=== PATIENT | female | born 1995 | race Caucasian/White ===

== ENCOUNTER 2017-09-18 21:47 | Emergency (ER) | payer MEDICAID ==
[2016-01-01 05:03] VITALS: BMI 31.7
[~2017-09-18 21:47] MED LIST: DEPO-PROVER150 MG/ML IM; HYDROCODONE-APA1 TAB PO; MOTRIN600 MG PO; PRENAVITE1 TAB PO
[2017-09-18 22:32] LABS: APPEARANCE CLEAR (CLEAR); BILIRUBIN NEGATIVE (NEGATIVE); COLOR STRAW (YELLOW); GLUCOSE NEGATIVE (NEGATIVE); KETONE NEGATIVE (NEGATIVE); NITRITE NEGATIVE (NEGATIVE); PROTEIN NEGATIVE (NEGATIVE); SPECIFIC GRAVITY 1.005 (1.005-1.020); UROBILINOGEN NORMAL (NORMAL)
[2017-09-18 22:33] LABS: WHITE CELLS - URINE 0-5 /hpf (0-5)
[2017-09-18 22:34] LABS: BACTERIA MODERATE /hpf (NONE SEEN); RED CELLS - URINE 0-5 /hpf (0-5)
[2017-09-18 23:33] LABS: BASOPHILS 0.2 % (0-2); EOSINOPHILS 0.9 % (0-7); IMMATURE GRANULOCYTES 0.1 % (0-5); LYMPHOCYTES 43.7 % (15-50); MCH 28.7 pg (26.0-34.0); MCHC 34.2 g/dL (31.0-37.0); MCV 83.9 fL (80.0-100.0); MEAN PLATELET VOLUME 9.2 fL (7.4-10.4); MONOCYTES 7.7 % (2-11); NEUTROPHILS 47.4 % (40-80); PLATELET COUNT 177 10x3/uL (130-400); RBC 4.53 10x6/uL (4.00-5.40); RDW 13.6 % (11.5-14.5); WBC 8.6 10x3/uL (4.8-10.8)
[2017-09-19 00:06] LABS: ALBUMIN 4.2 g/dL (3.4-5.0); BILIRUBIN - TOTAL 0.51 mg/dL (0.2-1.3); CALCIUM 9.6 mg/dL (8.5-10.1); CARBON DIOXIDE 23.4 mmol/L (21.0-32.0); CREATININE - SERUM 1.1 mg/dL (0.6-1.3); POTASSIUM - SERUM 3.4 mmol/L (3.5-5.1)
== END 2017-09-19 01:35 | disposition home or self-care (01) ==
LOC: D.ER 21:47
PROVIDERS: Family Medicine
DX: S39.012A Strain of muscle, fascia and tendon of lower back, initial encounter (principal); X58.XXXA Exposure to other specified factors, initial encounter; Y93.89 Activity, other specified; Y92.89 Other specified places as the place of occurrence of the external cause

== ENCOUNTER 2019-11-15 05:43 | Day surgery (SDC) | payer BC, MEDICAID ==
[~2019-11-15] VITALS: Ht 157.5 cm; Wt 65.8 kg
[~2019-11-15 05:43] MED LIST changes: +ADIPEX-P37.5 MG PO; +TOPAMAX50 MG PO
[2019-11-15 06:21] LABS: HEMATOCRIT 41.5 % (36.0-48.0); HEMOGLOBIN 13.9 g/dL (12-16); MCH 29.4 pg (26.0-34.0); MCHC 33.5 g/dL (31.0-37.0); MCV 87.7 fL (80.0-100.0); MEAN PLATELET VOLUME 8.8 fL (7.4-10.4); RBC 4.73 10x6/uL (4.00-5.40); RDW 13.1 % (11.5-14.5)
[2019-11-15 06:32] LABS: HCG SERUM NEGATIVE (NEGATIVE)
[2019-11-15 06:42] VITALS: BP 115/69; Ht 157.5 cm; Wt 65.8 kg
[2019-11-15] MEDS ORDERED: HYDROCODON-ACET15 ML (09:52)
--- NOTE | 2019-11-15 10:30 | NUR ---
PATIENT AMBULATES TO BATHROOM AND VOIDS LARGE AMOUNT IN TOILET, LEFT ANTECUBITAL PIV DC'D WITH TIP INTACT. DISCHARGE INSTRUCTIONS REVIEWED WITH PATIENT AND SPOUSE. PATIENT DRESSING IN PERSONAL CLOTHING. PATIENT STATES DR HERNANDEZ HAS COME AND SPOKEN WITH HER
--- NOTE | 2019-11-18 12:41 | HP ---
PATIENT: LAURE MARC MEDICAL RECORD: [id number] ACCOUNT: [id number] LOCATION:[facility] : 93 ADMISSION DATE: 11/15/19 PCP: FERDINAND TRONCOSO MD HISTORY AND PHYSICAL EXAMINATION PREOPERATIVE HISTORY AND PHYSICAL HISTORY OF PRESENT ILLNESS: Laure is 24. She has been having recurrent strep pharyngitis and tonsilliths. She has been admitted for tonsillectomy and adenoidectomy. PAST MEDICAL HISTORY: Otherwise negative. PAST SURGICAL HISTORY: Bilateral foot surgery, 2012. MEDICATIONS: Phentermine. ALLERGIES: PENICILLIN. PHYSICAL EXAMINATION: GENERAL: She is healthy-appearing, developmentally normal. FACE: Normal, symmetric, no lesions. EYES: Sclerae and conjunctivae are normal. EARS: Canals and TMs normal. NOSE: No mass, polyps or drainage. ORAL CAVITY AND OROPHARYNX: Large 3+ tonsils with pockets and copious tonsilliths. NECK: No masses, no adenopathy. CHEST: Clear. CARDIOVASCULAR: Regular rate and rhythm, no murmur. EXTREMITIES: Normal. IMPRESSION: Chronic caseous tonsillitis and recurrent pharyngitis. PLAN: Tonsillectomy and adenoidectomy. TRANSINT:[id number] Voice Confirmation ID: [id number] DOCUMENT ID: [id number] LUISANA HERNANDEZ MD at 1241 CC: [id number] DICTATION DATE: 11/04/19 0947 FUND DIRECTOR: 11/04/19 1107 [facility] 11/15/19 [place] [id number]
--- NOTE | 2019-11-18 12:41 | OP ---
PATIENT NAME: HALLE MARC MEDICAL RECORD: [id number] :93 [facility] DATE: SURGEON: LUISANA UGALDE MD DATE OF OPERATION: 11/15/2019 PREOPERATIVE DIAGNOSIS: Chronic pharyngitis. POSTOPERATIVE DIAGNOSIS: Chronic pharyngitis. PROCEDURE: Tonsillectomy and adenoidectomy. SURGEON: Luisana Ugalde MD ANESTHESIA: General orotracheal. BLOOD LOSS: Less than 5 cc. SPECIMENS: Right and left tonsil. COMPLICATIONS: None. DISPOSITION: Recovery stable. PROCEDURE NOTE: She was brought to the operating room and placed in supine position, sedated and intubated by anesthesia. The table was turned 90 degrees. Head drapes were applied. She was positioned for tonsillectomy. Using a headlight, a Cruz-Marshall mouth gag was carefully inserted and elevated on a towel on the chest. The palate was examined and palpated, was normal. A red rubber catheter was placed to the right side of the nose and the pharynx was grasped with tonsil clamp to retract the soft palate. Using a mirror, the nasopharynx was examined. Suction cautery on a setting of 30 was used to ablate and suction the adenoid tissue up near the choanae. The choanae and eustachian orifices were normal bilaterally. The red rubber catheter was let down and removed. The right tonsil was grasped at superior pole with a straight Allis clamp. Spatula tip cautery on a setting of 8 was used to dissect out the tonsil along its capsule, preserving the anterior and posterior tonsillar pillar. There are quite a few tonsoliths. Left tonsil was removed in the same fashion. Then, both sides of the nose were irrigated with saline. The pharynx was suctioned. Tonsillar fossae were agitated. Suction cautery on a setting of 18 was used to control minimal oozing. With the field clean and dry, the Cruz-Marshall mouth gag and removed. She was awakened, extubated, and transported to recovery in good condition. No complications. TRANSINT:[id number] Voice Confirmation ID: [id number] DOCUMENT ID: [id number] LUISANA UGALDE MD at 1246 CC: [id number] DICTATION DATE: 11/15/19 1042 DRAPERY SEWER HAND: 11/15/192056 [facility] 11/15/19 [place] [id number] [place] [id number]
== END 2019-11-15 10:40 | disposition home or self-care (01) ==
LOC: D.OPS 05:43
PROVIDERS: Anesthesiology; ATTEND Otolaryngology
DX: J02.0 Streptococcal pharyngitis (principal)